=== PATIENT | female | born 1980 | race Caucasian/White ===

== ENCOUNTER 2017-05-19 20:48 | Emergency (ER) | payer BC ==
[~2017-05-19] VITALS: Ht 157.5 cm; Wt 49.9 kg
[2017-05-19 20:55] VITALS: BP 122/79
== END 2017-05-20 00:15 | disposition home or self-care (01) ==
LOC: ER 20:52
DX: H00.021 Hordeolum internum right upper eyelid (principal); E05.90 Thyrotoxicosis, unspecified without thyrotoxic crisis or storm
CPT/HCPCS: 99281; A4606; Z7610; Z7502

== ENCOUNTER 2018-07-12 09:30 | Emergency (ER) | payer BC ==
--- NOTE | 2018-07-12 10:00 | NUR ---
CALLED PT IN [place], NO RESPONSE
--- NOTE | 2018-07-12 10:30 | NUR ---
CALLED PT IN [place], NO RESPONSE
--- NOTE | 2018-07-12 11:00 | NUR ---
CALLED PT [place], NO RESPONSE.
== END 2018-07-12 12:44 | disposition left against medical advice (07) ==
LOC: ER 09:31
DX: Z53.21 Procedure and treatment not carried out due to patient leaving prior to being seen by health care provider (principal)